=== PATIENT | female | born 1980 | race African-American/Black ===

== ENCOUNTER 2017-03-17 11:48 | Emergency (ER) | payer BC ==
[~2017-03-17] VITALS: Ht 165.1 cm; Wt 85.0 kg
[2017-03-17 11:53] VITALS: BP 123/65; PULSE 77; RESP 15; TEMP 98.1; O2SAT 98
[2017-03-17] MEDS ORDERED: LEVO50TA4 PO (12:27)
--- NOTE | 2017-03-17 12:28 | PD ---
HPI . wedding ring stuck on finger x 6 mts Chief Complaint: Skin Problem Time Seen by Provider: 12:21 Travel History International Travel<30 days: No Contact w/Intl Traveler<30days: No Traveled to known affect area: No History of Present Illness HPI 36-year-old female here complaining of a wedding ring that is stuck on her finger. She has a ring on her left ring finger that has been stuck for 6 months. Patient says that it will intermittently swell, however started swelling a little bit more than usual and developed some redness, which is what prompted her to come to the emergency department. She complains of mild pain in the area. The ring was removed in triage and she is already feeling relief. She has no other complaints. PFSH Past Medical History ?: Not Social History Tobacco Use: No Allergies-Medications (Allergen,Severity, Reaction): Coded Allergies: No Known Allergies (Unverified , 03/17/17) Reported Meds & Prescriptions Reported Meds & Active Scripts Active Bactroban Topical (Mupirocin) 22 Gm Cream 1 Applic TOPICAL BID 5 Days Bactrim DS (Sulfamethoxazole-Trimethoprim) 800-160 Mg Tab 1 Tab PO BID Reported Levothyroxine (Levothyroxine Sodium) 50 Mcg Tab 50 Mcg PO DAILY Review of Systems General / Constitutional: No: Fever Eyes: No: Visual changes HENT: No: Headaches Cardiovascular: No: Chest Pain or Discomfort Respiratory: No: Shortness of Breath Gastrointestinal: No: Abdominal Pain Genitourinary: No: Dysuria Musculoskeletal: No: Pain Skin: Positive Other (finger cellulitis), No Rash Neurologic: No: Weakness Psychiatric: No: Depression Endocrine: No: Polydipsia Hematologic/Lymphatic: No: Easy Bruising Physical Exam Narrative GENERAL: AAO x 3, no acute distress, Well-nourished, well-developed patient. SKIN: Warm and dry. No visible rashes or bruising. left ring finger with indentation from wedding ring, + erythema and edema distal to location of ring, mild peeling of the skin HEAD: Normocephalic and atraumatic. EYES: No scleral icterus. No injection or drainage. ENT: No nasal drainage noted. Mucous membranes pink. Airway patent. NECK: Supple, trachea midline. No JVD. CARDIOVASCULAR: Regular rate and rhythm without murmurs, gallops, or rubs. RESPIRATORY: Breath sounds equal bilaterally. No accessory muscle use. No rhonchi or rales. GASTROINTESTINAL: visual inspection normal EXTREMITIES: No cyanosis or edema. BACK: No obvious deformity. 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 Data Data Last Documented VS Vital Signs Date Time Temp Pulse Resp B/P (MAP) Pulse Ox O2 Delivery O2 Flow Rate FiO2 03/17/17 11:53 98.1 77 15 123/65 (84) 98 Orders Orders Ed Urine Pregnancytest Poc (03/17/17 12:23) [facility] Medical Decision Making Medical Screen Exam Complete: Yes Emergency Medical Condition: Yes Medical Record Reviewed: Yes Differential Diagnosis finger cellulitis, foreign body of finger, less likely fracture Narrative Course 36 yr old female here with a stuck wedding ring and finger cellulitis. ED preg ordered as patient not certain of status. Antibiotics upon discharge and f/u with PCP. Diagnosis Primary Impression: Cellulitis of finger of left hand Patient Instructions: General Instructions Additional Instructions: Please return to emergency department if your symptoms return or worsen. Follow up with your primary care provider. Take medications as prescribed. [place] for worsening signs of infection which include fever, increased redness , increased warmth, purulent drainage, increased swelling or streaking. If any of these develop, please go to the nearest emergency room. keep the area clean with soap and water daily. Med/Other Pt SpecificInfo: Prescription(s) given Scripts Mupirocin Topical (Bactroban Topical) 22 Gm Cream 1 APPLIC TOPICAL BID for Mgmt Bacterial Infection for 5 Days, #1 TUBE 0 Refills Prov: Casa Love MD 03/17/17 Sulfamethoxazole-Trimethoprim (Bactrim DS) 800-160 Mg Tab 1 TAB PO BID for Infection, #20 TAB 0 Refills Prov: Casa Love MD 03/17/17 Disposition: 01 DISCHARGE HOME Condition: Stable Marianna Baum Mar 17, 2017 12:28
[2017-03-17] MEDS ORDERED: BACT800T5 PO (12:29)
[2017-03-17] MEDS ORDERED: MUPI2%T TOPICAL (12:29)
== END 2017-03-17 12:52 | disposition home or self-care (01) ==
LOC: NEPD 11:48
DX: L03.012 Cellulitis of left finger (principal)
CPT/HCPCS: 84703; 99284